=== PATIENT | male | born 1975 | race Caucasian/White ===

== ENCOUNTER 2022-11-15 14:28 | Emergency (ER) | payer BC, SELFPAY ==
[2022-11-15 14:37] VITALS: BP 147/93; PULSE 85; TEMP 35.7; O2SAT 97; BMI 21.9
--- NOTE | 2022-11-15 14:59 | CRLHL7_ITS ---
For Patients: As a result of the Cures Act, medical imaging exams and procedure reports are released immediately into your electronic medical record. You may view this report before your referring provider. If you have questions, please contact your health care provider. INDICATION: Vertigo. COMPARISON: None. TECHNIQUE: Noncontrast CT head. FINDINGS: Normal brain parenchymal morphology. No acute intracranial hemorrhage, acute infarct, focal edema, mass effect, or fracture. No midline shift. No abnormal ventricular dilatation. Normal calvarium and skull base. Visualized paranasal sinuses and mastoid air cells are clear. Normal orbits bilaterally. IMPRESSION: 1. No acute intracranial abnormality. 2. Normal brain parenchymal morphology Please note that all CT scans at this facility use dose modulation, iterative reconstruction, and/or weight-based dosing when appropriate to reduce radiation dose to as low as reasonably achievable. Dictated by James Goodwin MD @ 11/15/2022 3:53:36 PM (Electronically Signed)
[2022-11-15 15:18] LABS: Basophils Absolute Auto 0.04 K/uL (0.00-0.30); Basophils Percent Auto 0.8 % (0.0-3.0); Eosinophils Absolute Auto 0.19 K/uL (0.00-0.50); Eosinophils Percent Auto 3.7 % (0.0-7.0); Hematocrit 38.3 % (37.0-53.0); Hemoglobin* 13.4 gm/dL (13.5-17.5); Immature Granulocytes Abs Auto 0.05 K/uL (0.00-0.30); Lymphocytes Percent Auto 18.1 % (20-44); Mean Corpuscular HGB Conc 35 gm/dL (32-36); Mean Corpuscular Hemoglobin 33 pg (26-34); Mean Corpuscular Volume 93 fL (80-100); Monocytes Percent Auto 10.9 % (0.0-11.0); Neutrophils Absolute Auto 3.38 K/uL (1.7-7.0); Neutrophils Percent Auto 65.5 % (42.0-72.0); Platelet Count* 223 K/uL (140-440); RDW Coefficient of Variation % 11.9 % (11.5-15.5); Red Blood Count 4.12 m/uL (4.30-5.90); White Blood Count* 5.15 K/uL (4.50-11.00)
[2022-11-15] MEDS: ONDANSETRON 2 MG/ML inj 4 MG IVP (15:18)
[2022-11-15 15:27] LABS: Slide Review Reflex No
--- NOTE | 2022-11-15 15:34 | ED_ITS ---
HPI - Weakness General Date Seen: 11/15/22 Chief complaint: Weakness Stated complaint: dizzy and nauseous Time Seen by Provider: 11/15/22 14:34 Source: patient Mode of arrival: ambulatory Limitations: no limitations History of Present Illness HPI Narrative: Patient is a very nice 47-year-old gentleman who presents here for evaluation of weakness, dizziness, and the feeling that the room is spinning around, this came on acutely while he was with his grocery shopping, he almost felt like he was going to throw up, whenever he sits and does not move his head he is much improved, but when he moves his head this all comes back on, he denies a history of fevers chills or sweats or preceding or could current URI type symptoms, he has no neck stiffness, headache, numbness tingling weakness in his hands or his feet with this. Remembers in the past he had this once before with this was a number years ago. He has been struggling for approximately 1 year with a left- sided knee year issues, for which she has seen ENT for. He says he has in think he can really even walk because of this feeling he has. Does admit to me that he drinks too many beers at least 3 per day. Works as the automotive glazier. Previously in the . Is on no chronic medications, previous right-sided neck surgery secondary to infected cyst. Related Data Home Medications Medication Instructions Recorded Confirmed No Known Home Medications 11/15/22 11/15/22 Allergies Allergy/AdvReac Type Severity Reaction Status Date / Time No Known Drug Allergies Allergy Verified 02/10/22 13:18 Review of Systems Status of ROS: Reports: 10 or more systems reviewed and unremarkable except as noted in History and below [facility] Social History Smoking Status: Former smoker What tobacco products do you use: cigarettes Smoking quit date/years: >15 years ago Do you use any of these nicotine containing products: None How often do you have a drink containing alcohol: 4 or more times a week How many standard drinks containing alcohol do you have on a typical day: 1 or 2 AUDIT-C Alcohol total score: 4 Non-prescribed substance use: denies use service: Yes Exam Narrative: Exam Narrative: I find him resting in room 3, he seems almost worried to turn his head, for the symptoms come on. His pupils are equal round reactive to light, is GCS is 15/15, he is alert oriented x3 he is able to whistle for me. He does however have horizontal nystagmus of 3 beats both right and left, no vertical component. No diplopia, cranial nerves 3-12 are otherwise normal his mouth opening is normal, carotid upstrokes are equal bilaterally scar on the right side of his neck, well-healed. There is no lymphadenopathy, and there is no meningismus. Chest is good air entry bilaterally with no wheezing crackles noted his heart sounds are normal, there is no murmurs clicks or gallops, is abdomen soft there is no guarding no organomegaly bowel sounds are normal, there is no redness rashes, he has normal proximal and distal power in all of his extremities any symmetrical, fine motor movements and finger-nose testing are normal. Const: Vital Signs, click to edit/add: Vital Signs - 24 hr 11/15/22 14:37 Temperature 96.2 F L Pulse Rate [Pulse Oximeter] 85 Blood Pressure [Ri ght Upper Arm] 147/93 H Pulse Oximetry 97 Oxygen Delivery Me thod Room Air Documenting provider has reviewed patient's vital signs: yes Course Course Hospital Course: Patient did well with the vertigo, he was able ambulate to the bathroom, I discussed with them doing a head CT, which was interpreted as negative, and then I discussed doing an MRI, given his history, and they agreed to this. His head MRI did not show any acute findings, this is reassuring to both this physician and the patient. At this point I think we can send him home, I believe this is likely related to either was tibial her issues, or possibly BPPV causing the vertigo. We will have him avoid alcohol use the Ativan as needed, and then take it easy, follow-up with primary care suggested. Vital Signs Vital signs: Initial Vital Signs Temperature 96.2 F L 11/15/22 14:37 Temperature Source Temporal Artery Scan 11/15/22 14:37 Pulse Rate 85 11/15/22 14:37 Blood Pressure 147/93 H 11/15/22 14:37 Blood Pressure Mean 111 11/15/22 14:37 Blood Pressure Position Supine 11/15/22 14:37 Pulse Oximetry 97 11/15/22 14:37 Oxygen Delivery Method Room Air 11/15/22 14:37 Vital Signs Temperature 96.2 F L 11/15/22 14:37 Pulse Rate 85 11/15/22 14:37 Blood Pressure 147/93 H 11/15/22 14:37 Pulse Oximetry 97 11/15/22 14:37 Oxygen Delivery Method Room Air 11/15/22 14:37 Temperature 96.2 F L 11/15/22 14:37 Pulse Rate 85 11/15/22 14:37 Blood Pressure 147/93 H 11/15/22 14:37 Pulse Oximetry 97 11/15/22 14:37 Oxygen Delivery Method Room Air 11/15/22 14:37 MDM - Weakness MDM Narrative Medical decision making narrative: Life-threatening differential diagnosis considered include, CVA, other differential diagnosis include BPPV, labyrinthitis, Meniere's disease, vesti bular neuronitis, migraine, multiple sclerosis, otitis media, viral syndrome as well as other etiologies Medical Records Attestation: I reviewed the patient's medical records. Lab Data Attestation: I reviewed the patient's lab results. Labs: Lab Results 11/15/22 11/15/22 11/15/22 Range/Units 15:00 15:05 15:05 WBC 5.15 (4.50-11.00) K/uL RBC 4.12 L (4.30-5.90) m/uL Hgb 13.4 L (13.5-17.5) gm/dL Hct 38.3 (37.0-53.0) % MCV 93 (80-100) fL MCH 33 (26-34) pg MCHC 35 (32-36) gm/dL RDW Coeff of Julien 11.9 (11.5-15.5) % Plt Count 223 (140-440) K/uL Neut % (Auto) 65.5 (42.0-72.0) % Lymph % (Auto) 18.1 L (20-44) % [place] % (Auto) 10.9 (0.0-11.0) % Eos % (Auto) 3.7 (0.0-7.0) % Baso % (Auto) 0.8 (0.0-3.0) % Neut # (Auto) 3.38 (1.7-7.0) K/uL Lymph # (Auto) 0.90 (0.90-2.90) K/uL [place] # (Auto) 0.60 (0.00-0.90) K/UL Eos # (Auto) 0.19 (0.00-0.50) K/uL Baso # (Auto) 0.04 (0.00-0.30) K/uL Sodium 130 L (135-149) mmol/L Potassium 3.7 (3.6-5.1) mmol/L Chloride 96 (96-114) mmol/L Carbon Dioxide 27 (20-32) mmol/L BUN 6 (5-24) mg/dL Creatinine 0.5 (0.5-1.5) mg/dL Estimated Creat Clear 165.81 Estimated GFR 127 ml/min Glucose 145 H (60-115) mg/dL Calcium 8.6 (8.4-10.6) mg/dL C-Reactive Protein < 0.5 L Cancelled (0.5-1.0) mg/dL Ethyl Alcohol < 0.01 L (0.01-0.03) % SARS-CoV-2 (PCR) (Negative) Influenza Type A (PCR) (Negative) Influenza Type B (PCR) (Negative) RSV (PCR) (Negative) POC Troponin I 0.00 L (0.01-0.04) ng/ml 11/15/22 11/15/22 Range/Units 15:05 15:20 WBC (4.50-11.00) K/uL RBC (4.30-5.90) m/uL Hgb (13.5-17.5) gm/dL Hct (37.0-53.0) % MCV (80-100) fL MCH (26-34) pg MCHC (32-36) gm/dL RDW Coeff of Julien (11.5-15.5) % Plt Count (140-440) K/uL Neut % (Auto) (42.0-72.0) % Lymph % (Auto) (20-44) % [place] % (Auto) (0.0-11.0) % Eos % (Auto) (0.0-7.0) % Baso % (Auto) (0.0-3.0) % Neut # (Auto) (1.7-7.0) K/uL Lymph # (Auto) (0.90-2.90) K/uL [place] # (Auto) (0.00-0.90) K/UL Eos # (Auto) (0.00-0.50) K/uL Baso # (Auto) (0.00-0.30) K/uL Sodium (135-149) mmol/L Potassium (3.6-5.1) mmol/L Chloride (96-114) mmol/L Carbon Dioxide (20-32) mmol/L BUN (5-24) mg/dL Creatinine (0.5-1.5) mg/dL Estimated Creat Clear Estimated GFR ml/min Glucose (60-115) mg/dL Calcium (8.4-10.6) mg/dL C-Reactive Protein (0.5-1.0) mg/dL Ethyl Alcohol Cancelled (0.01-0.03) % SARS-CoV-2 (PCR) Negative SARS-CoV-2 (Negative) Influenza Type A (PCR) Negative PCR FLU A (Negative) Influenza Type B (PCR) Negative PCR FLU B (Negative) RSV (PCR) Negative PCR RSV (Negative) POC Troponin I (0.01-0.04) ng/ml Imaging Data mri head : Radiologist's impression: atient: GIOVANY FRIEND Facility:?[facility] Patient ID:?[id number] Site Patient ID:?[id number]. Site :?[id number] Study:?MRI Head W/ WO DOTAREM 15-11/15/2022 5:46:13 PM Ordering Physician:Veena Kearney Final Report: INDICATION: Vertigo. COMPARISON: CT from earlier today. TECHNIQUE: Multiplanar T1, T2, FLAIR and diffusion-weighted imaging. Post gadolinium T1 sequences. FINDINGS: Normal brain parenchymal morphology. Few scattered tiny punctate foci of T2/FLAIR signal hyperintensity within the white matter of the frontal lobes which likely represent chronic deep white matter small vessel ischemic changes sequela migraine headache. No intracranial hemorrhage. No abnormal ventricular dilatation. Intracranial vascular flow voids are preserved. No mass effect or midline shift. No restricted diffusion to suggest acute ischemia. No abnormal enhancement or enhancing lesions. No abnormal mass or enhancement within the visualized cerebellopontine angles are IAC`s. Bilateral orbits are unremarkable. Normal appearing sella. Visualized mastoid air cells are unremarkable. Mucosal thickening in the ethmoid air cells and sphenoid sinuses. IMPRESSION: 1. No acute intracranial abnormality 2. Normal brain parenchymal morphology. Scattered foci of T2 signal within the white matter consistent with chronic deep white matter small vessel ischemic changes or sequela of migraine headaches 3. No abnormal enhancement or enhancing lesions Dictated by James Goodwin MD @ 11/15/2022 5:55:38 PM (Electronic Signature) Discharge Plan Discharge Clinical Impression: Vertigo Patient Disposition: Home w/ Parent or Adult Condition: Improved Instructions: Vertigo (DC), Lightheadedness (ED), Dizziness (ED) Additional Instructions: Home, rest, use of medications as directed, take it easy for the next couple days no bending over moving her head fast, and then slow improvement should occur. I would recommend use seeing Dr. Obrien in the next week or so to recheck with him, the good news is we did see anything on MRI this was suggestive of any further other issues such as tumor, stroke. Return as needed Prescriptions: No Action No Known Home Medications Follow Up/Referrals: Provider,Not a Local [Primary Care Provider] - Stand Alone Forms: [facility] Info Instructions
[2022-11-15] MEDS: 0.9 % SODIUM CHLORIDE 1000 ml 1,000 ML IV (15:40)
[2022-11-15] MEDS: LORazepam 2 MG/ML inj 0.5 MG IVP (15:41)
[2022-11-15 15:44] LABS: Chloride* 96 mmol/L (96-114); Potassium* 3.7 mmol/L (3.6-5.1); Sodium* 130 mmol/L (135-149)
[2022-11-15 15:47] LABS: Carbon Dioxide* 27 mmol/L (20-32); Creatinine* 0.5 mg/dL (0.5-1.5); Est. Creatinine Clearance* 165.81; Estimated Glomerular Filt Rate 127 ml/min
[2022-11-15 15:48] LABS: Blood Urea Nitrogen* 6 mg/dL (5-24); Calcium* 8.6 mg/dL (8.4-10.6); Glucose* 145 mg/dL (60-115)
[2022-11-15 15:49] LABS: Ethanol* < 0.01 % (0.01-0.03)
[2022-11-15 15:58] LABS: C Reactive Protein* < 0.5 mg/dL (0.5-1.0)
[2022-11-15 16:17] LABS: PCR FLU A Negative PCR FLU A (Negative); PCR FLU B Negative PCR FLU B (Negative); PCR RSV Negative PCR RSV (Negative)
[2022-11-15 16:19] LABS: SARS PCR* Negative SARS-CoV-2 (Negative)
--- NOTE | 2022-11-15 16:48 | CRLHL7_ITS ---
For Patients: As a result of the Cures Act, medical imaging exams and procedure reports are released immediately into your electronic medical record. You may view this report before your referring provider. If you have questions, please contact your health care provider. INDICATION: Vertigo. COMPARISON: CT from earlier today. TECHNIQUE: Multiplanar T1, T2, FLAIR and diffusion-weighted imaging. Post gadolinium T1 sequences. FINDINGS: Normal brain parenchymal morphology. Few scattered tiny punctate foci of T2/FLAIR signal hyperintensity within the white matter of the frontal lobes which likely represent chronic deep white matter small vessel ischemic changes sequela migraine headache. No intracranial hemorrhage. No abnormal ventricular dilatation. Intracranial vascular flow voids are preserved. No mass effect or midline shift. No restricted diffusion to suggest acute ischemia. No abnormal enhancement or enhancing lesions. No abnormal mass or enhancement within the visualized cerebellopontine angles are IAC`s. Bilateral orbits are unremarkable. Normal appearing sella. Visualized mastoid air cells are unremarkable. Mucosal thickening in the ethmoid air cells and sphenoid sinuses. IMPRESSION: 1. No acute intracranial abnormality 2. Normal brain parenchymal morphology. Scattered foci of T2 signal within the white matter consistent with chronic deep white matter small vessel ischemic changes or sequela of migraine headaches 3. No abnormal enhancement or enhancing lesions Dictated by James Goodwin MD @ 11/15/2022 5:55:38 PM (Electronically Signed)
== END 2022-11-15 18:58 | disposition home or self-care (01) ==
PROVIDERS: Emergency Provider Family Medicine
DX: R42 Dizziness and giddiness (principal)
CPT/HCPCS: 36415; 70450; 70553; 80048; 82077; 84484; 85025; 86140; 87631; 96374; 96375; 99284; 99285; A9575; J2060; J2405; J7030

== ENCOUNTER 2023-11-07 12:27 | Outpatient (CLI) | payer BC, SELFPAY ==
[2023-11-09 12:14] LABS: Fecal Occult Blood* Negative (Negative)
[2023-11-11 08:12] LABS: Ova and Parasite, Fecal Negative (Negative)
== END 2023-11-07 12:28 | disposition home or self-care (01) ==
PROVIDERS: PCP Nurse Practitioner Family; Visit Provider Nurse Practitioner Family
DX: R19.7 Diarrhea, unspecified (principal)
CPT/HCPCS: 82270; 87045; 87046; 87177; 87209; 87427